=== PATIENT | female | born 1985 | race Caucasian/White ===

== ENCOUNTER 2016-10-14 21:22 | Emergency (ER) ==
[2016-10-14 21:34] VITALS: BP 123/79; TEMP 99.1; BMI 33.6
[2016-10-14] MEDS ORDERED: SODIUM CHLORIDE 1,000 ML IV STA (21:42)
[2016-10-14 21:51] LABS: BASOPHILS # (AUTO) 0.1 K/uL (0-0.2); BASOPHILS % (AUTO) 1.1 % (0.0-3.0); EOSINOPHILS # (AUTO) 0.6 K/ul (0.0-0.7); EOSINOPHILS % (AUTO) 7.3 % (0.0-7.0); HEMATOCRIT 38.9 % (37.0-47.0); HEMOGLOBIN 12.8 g/dl (12.0-16.0); IMMATURE GRANULOCYTE % (AUTO) 0.4 % (0.0-5.0); LYMPHOCYTES % (AUTO) 26.7 (10.0-50.0); MEAN CORPUSCULAR HEMOGLOBIN 28.5 pg (27.0-31.0); MEAN CORPUSCULAR HGB CONC 32.9 (31.8-35.4); MEAN CORPUSCULAR VOLUME 86.6 fl (81.0-99.0); MONOCYTES # (AUTO) 0.7 K/uL (0.4-2.0); MONOCYTES % (AUTO) 9.8 (0-10); NEUTROPHILS # (AUTO) 4.1 K/ul (2.0-6.9); NEUTROPHILS % (AUTO) 54.7; PLATELET COUNT 265 10^3/uL (140-440); RED BLOOD COUNT 4.49 10^6/ul (4.20-5.40); WHITE BLOOD COUNT 7.54 K/ul (4.6-10.2)
[2016-10-14 21:55] LABS: BILIRUBIN,URINE Negative (NEGATIVE); KETONES,URINE Negative (NEGATIVE); LEUKOCYTE ESTERASE ,URINE Trace (NEGATIVE); NITRITE,URINE Negative (NEGATIVE); PROTEIN,URINE Negative (NEGATIVE); URINE PREGNANCY INTERNAL QC INTERNAL QC VALID; URINE, BLOOD 1+ (NEGATIVE)
[2016-10-14 22:00] LABS: ADD URINE MICROSCOPIC YES; BACTERIA,URINE TRACE (NOT PRESENT)
[2016-10-14 22:12] LABS: ALBUMIN 3.7 g/dL (3.4-5.0); ALBUMIN/GLOBULIN RATIO 1.16; ANION GAP 10.9; BILIRUBIN,TOTAL 0.29 mg/dL (0.00-1.20); BUN/CREATININE RATIO 12.82; CALCIUM 8.8 mg/dL (8.2-10.2); CREATININE 0.78 mg/dL (0.60-1.30); POTASSIUM 3.9 mmol/L (3.5-5.10); TOTAL PROTEIN 6.9 g/dL (6.4-8.2)
--- NOTE | 2016-10-14 23:03 | CT ---
EXAM: CT scan abdomen pelvis with without contrast HISTORY: Left lower quadrant pain recent lymph node biopsy COMPARISON: CT scan abdomen pelvis 09/18/2010 FINDINGS: Contiguous axial images were obtained through the abdomen pelvis both before after uneven tful administration of intravenous contrast utilizing 3-mm collimation. Sagittal and coronal recons tructions were imaged and reviewed.. The visualized lung bases are clear. The heart is normal in s ize. There has been prior cholecystectomy with minimal pneumobilia. The liver pancreas spleen and adrenal glands have normal enhanced CT appearance. Common bile duct is normal. There is normal ret rocecal appendix. The kidneys excrete contrast in a normal fashion bilaterally. There is umbilical hernia containing only fat.. There is no evidence of free fluid or inflammatory changes.. Subcuta neous stranding is seen within the left groin region which extends to the level of the symphysis.. Bone windows reveals no evidence of lytic or blastic lesions. IMPRESSION: Status post cholecystectomy with minimal pneumobilia. Normal appendix. Left-sided subcutaneous stranding in the groin region likely related to recent biopsy
[2016-10-14] MEDS ORDERED: CLEOCIN PO STA (23:21)
--- NOTE | 2016-10-14 23:25 | ED.PDOC ---
General ED Provider: Dr. CECIL OSEGUERA-ER Chief Complaint: Wound Check Stated Complaint: had lymph node biopsy now feeling hard and firm Time Seen by Physician: 21:25 Mode of Arrival: Walk-In Information Source: Patient Exam Limitations: No limitations Primary Care Provider: DARIO MOREJON Nursing and Triage Documentation Reviewed and Agree: Yes Skin Complaint Exam - Skin/Soft Tissue Complaint/Exam Onset/Duration: 2 dasy Symptoms Are: Still present Timing: Constant Initial Severity: Mild Current Severity: Mild Location: left inguinal area Character: Reports: Swelling, Raised. Denies: Redness, Painful Aggravating: Reports: None Alleviating: Reports: None Associated Signs and Symptoms: Reports: Tenderness. Denies: Fever, Chills, Itching, Drainage, Bruising, Red streaks, Joint swelling Related History: Reports: Recent trauma Related Surgical History: Reports: None Recent Exposure to Others w/Similar Symptoms: No Skin Findings: Present: Induration Joint Tenderness Present: No Differential Diagnoses: Abscess, Cellulitis, Infection, Lymphadenitis Review of Systems - Review Of Systems Constitutional: Reports: No symptoms Eyes: Reports: No symptoms Ears, Nose, Mouth, Throat: Reports: No symptoms Respiratory: Reports: No symptoms Cardiac: Reports: No symptoms GI: Reports: No symptoms : Reports: No symptoms Musculoskeletal: Reports: No symptoms Skin: Reports: No symptoms Neurological: Reports: No symptoms Endocrine: Reports: No symptoms Hematologic/Lymphatic: Reports: No symptoms All Other Systems: Reviewed and Negative Past Medical History - Past Medical History Endocrine: Reports: Unknown Cardiovascular: Reports: Unknown Respiratory: Reports: Unknown Hematological: Reports: Unknown Gastrointestinal: Reports: Unknown Genitourinary: Reports: Unknown Neuro/Psych: Reports: Unknown Musculoskeletal: Reports: Unknown Cancer: Reports: Unknown Last Menstrual Period: SEP 17 2017 - Surgical History General Surgical History: Reports: Unknown - Family History Family History: Reports: Unknown - Social History Smoking Status: Never smoker Hx Substance Use: No Alcohol Screening: Occasionally Lives: With family - Immunizations Tetanus Shot up to Date: Yes Physical Exam - Physical Exam Appearance: Well-appearing, No pain distress, Well-nourished Pain Distress: Mild Eyes: FIORDALIZA, EOMI, Conjunctiva clear ENT: Ears normal, Nose normal, Oropharynx normal Respiratory: Airway patent, Breath sounds clear, Breath sounds equal, Respirations nonlabored Cardiovascular: RRR, Pulses normal, No rub, No murmur GI/: Soft, Nontender, No masses, Bowel sounds normal, No Organomegaly Musculoskeletal: Normal strength Skin: Warm, Dry, Normal color Neurological: Sensation intact, Motor intact, Reflexes intact, Cranial nerves intact, Alert, Oriented Psychiatric: Affect appropriate Interpretation - Radiology Interpretation Radiology Interpretation By: Radiologist Radiology Results: Positive Exam Interpreted: CT Scan Critical Care Note - Critical Care Note Total Time (mins): 0 Course - Course Hematology/Chemistry: 10/14/16 21:50 10/14/16 21:50 Orders, Labs, Meds: Lab Review 10/14/16 10/14/16 21:40 21:50 WBC 7.54 RBC 4.49 Hgb 12.8 Hct 38.9 MCV 86.6 MCH 28.5 MCHC 32.9 RDW Coeff of Kimberly 13.3 Plt Count 265 Immature Gran % (Auto) 0.4 Neut % (Auto) 54.7 Lymph % (Auto) 26.7 [place] % (Auto) 9.8 Eos % (Auto) 7.3 H Baso % (Auto) 1.1 Immature Gran # (Auto) 0.0 Neut # 4.1 Lymph # 2.0 [place]ison # 0.7 Eos # 0.6 Baso # 0.1 Sodium 141 Potassium 3.9 Chloride 109 H Carbon Dioxide 25 Anion Gap 10.9 BUN 10 Creatinine 0.78 Estimated GFR (MDRD) 85.00 BUN/Creatinine Ratio 12.82 Glucose 88 Calcium 8.8 Total Bilirubin 0.29 AST 18 ALT 19 Alkaline Phosphatase 65 Total Protein 6.9 Albumin 3.7 Globulin 3.2 Albumin/Globulin Ratio 1.16 Amylase 37 Lipase 50 Urine Color Yellow Urine Clarity Clear Urine pH 5.0 Ur Specific [place] >=1.030 Urine Protein Negative Urine Glucose (UA) Negative Urine Ketones Negative Urine Blood 1+ Urine Nitrite Negative Urine Bilirubin Negative Urine Urobilinogen 0.2 Ur Leukocyte Esterase Trace Urine Microscopic RBC 2-5 Urine Microscopic WBC 0-2 Ur Squamous Epith Cells 2-5 Urine Bacteria Trace Urine Test Negative Orders Category Date Time Status NPO REMINDER: IMAGING ONCE CARE 10/14/16 21:43 Completed IV [ED IV/MEDIPORT/POWERPORT] .ONCE EMERGENCY 10/14/16 21:42 Active AMYLASE Stat LAB 10/14/16 21:50 Completed BLOOD CULTURE Stat LAB 10/14/16 22:05 Received CBC W/ AUTO DIFF Stat LAB 10/14/16 21:50 Completed COMPREHENSIVE METABOLIC PANEL Stat LAB 10/14/16 21:50 Completed LIPASE Stat LAB 10/14/16 21:50 Completed URINALYSIS C & S IF INDICATED Stat LAB 10/14/16 21:40 Completed URINE Stat LAB 10/14/16 21:40 Completed 0.9 % Sodium Chloride [Saline Flush] MEDS 10/14/16 21:42 Ordered 1 syr IVF PRN PRN Clindamycin HCl [Cleocin] MEDS 10/14/16 23:21 Discontinued 150 mg PO ONCE STA Sodium Chloride 0.9% [Sodium Chloride] 1,000 ml MEDS 10/14/16 21:42 Active IV 100 mls/hr CT ABDOMEN/PELVIS W/WO CONTRAS Stat RADS 10/14/16 21:43 Completed Medications Generic Name Dose Route Start Last Admin Trade Name Freq PRN Reason Stop Dose Admin Sodium Chloride 1,000 mls @ 100 mls/hr 10/14/16 21:42 10/14/16 22:27 Sodium Chloride IV 10/15/16 07:41 100 mls/hr .Q10H STA Administration Sodium Chloride 1 syr 10/14/16 21:42 Saline Flush IVF PRN PRN To flush IV Discontinued Medications Generic Name Dose Route Start Last Admin Trade Name Freq PRN Reason Stop Dose Admin Clindamycin HCl 150 mg 10/14/16 23:21 Cleocin PO 10/14/16 23:22 ONCE STA Vital Signs: Temp Pulse Resp BP Pulse Ox 10/14/16 21:22 99.1 F 65 20 123/79 100 Departure - Departure Time of Disposition: 23:25 Disposition: HOME SELF-CARE Discharge Problem: Lymphadenitis Instructions: Adenitis (ED) Condition: Good Pt referred to PMD for follow-up: Yes Additional Instructions: clindamycin 150mg tid x 7 days--keep appt wtih dr jaquez on saturday Allergies/Adverse Reactions: Allergies No Known Allergies Allergy (Unverified 05/01/16 08:37) Home Medications: Ambulatory Orders Cetirizine HCl 10 mg PO BEDTIME 05/01/16 Tizanidine HCl [Zanaflex] 4 mg PO BEDTIME 05/01/16 Hydrocodone/Acetaminophen [Lortab 7.5-325 mg Tablet] 1 each PO Q4-6H PRN Metoprolol Succinate [Toprol Xl] 12.5 mg PO BEDTIME 10/14/16 Ondansetron [Zofran Odt] 4 mg PO Q8H PRN 10/14/16 Disposition Discussed With: Patient
== END 2016-10-14 23:40 | disposition home or self-care (01) ==
LOC: ED 21:22
DX: I88.9 Nonspecific lymphadenitis, unspecified (principal); Z98.890 Other specified postprocedural states
CPT/HCPCS: 36415; 80053; 81001; 81025; 82150; 83690; 85025; 87040; 96360; 96361; 99284

== ENCOUNTER 2017-08-23 06:35 | Outpatient (CLI) ==
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
--- NOTE | 2017-08-23 16:06 | US ---
EXAM: ULTRASOUND LOWER EXTREMITY VENOUS DOPPLER EXAM HISTORY: Pain. FINDINGS: Right lower extremity venous Doppler exam. Real time hameed-scale, Doppler spectral analysis and color-flow Doppler imaging performed. The veins targeted for evaluation include the common femo ral, greater saphenous, profundus, femoral, popliteal, peroneal, anterior tibial and posterior tibial . The evaluated veins demonstrated normal spontaneous flow and compression without evidence of thro mbosis. IMPRESSION: No venous thrombosis identified within the areas evaluated.
== END 2017-08-23 06:36 | disposition home or self-care (01) ==
LOC: RAD 06:35
PROVIDERS: ATTEND Nurse Practitioner Family
DX: S80.851A Superficial foreign body, right lower leg, initial encounter (principal); M79.89 Other specified soft tissue disorders; M79.604 Pain in right leg; E66.9 Obesity, unspecified
CPT/HCPCS: 36415; 80053; 80061; 84439; 84443; 85025

== ENCOUNTER 2017-08-30 12:02 | Outpatient (CLI) ==
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
== END 2017-08-30 12:03 | disposition home or self-care (01) ==
LOC: RAD 12:02
PROVIDERS: ATTEND Nurse Practitioner Family
DX: M79.604 Pain in right leg (principal); S80.851A Superficial foreign body, right lower leg, initial encounter